=== PATIENT | male | born 1950 | race Caucasian/White ===

== ENCOUNTER 2022-11-23 03:26 | Emergency (ER) | payer MEDICARE ==
[~2022-11-23] VITALS: Ht 177.8 cm; Wt 117.9 kg
[~2022-11-23 03:26] MED LIST: AMLODIPINE BESYL5 MG PO; ASPIRIN ADULT L81 M2 PO; ATORVASTATIN CA20 M1 PO; DOXAZOSIN MESYLA4 MG PO; FAMOTIDINE40 MG PO; FUROSEMIDE40 MG PO; LACTULOSE20 GM/30 M PO; Lopressor25 MG PO; METFORMIN HYDR500 MG PO; VIBRA-TAB100 MG PO
[2022-11-23 04:52] LABS: BASO % 0.3 % (0.0-1.0); EOS % 0.1 % (1.0-4.0); HEMATOCRIT 42.8 % (42.0-52.0); LYMPH # 0.8 10*3/uL (1.3-4.4); LYMPH % 8.9 % (27.0-41.0); MEAN CELL VOLUME 82.9 fl (80.0-94.0); MEAN CORPUSCULAR HGB 28.1 pg (27.0-31.0); MEAN CORPUSCULAR HGB CONC 33.9 g/dl (33.0-37.0); MEAN PLATELET VOLUME 9.7 fl (9.6-12.3); MONO # 0.6 10*3/uL (0.1-1.0); MONO % 6.7 % (3.0-9.0); NEUT # 7.8 10*3/uL (2.3-7.9); NEUT % 83.8 % (47.0-73.0); PLATELET COUNT AUTOMATED 201 10*3/uL (130-400); RED BLOOD COUNT 5.16 10*6/uL (4.50-5.90); RED CELL DISTRI WIDTH 12.9 % (0-14.5); WHITE BLOOD COUNT 9.3 10*3/uL (4.8-10.8)
[2022-11-23 05:19] LABS: ALKALINE PHOSPHATASE 59 U/L (46-116); BUN 17 mg/dl (9-23); CHLORIDE 101 mmol/L (98-107); POTASSIUM 3.9 mmol/L (3.4-5.1); SGPT/ALT 10 U/L (10-49); TOTAL PROTEIN 7.1 gm/dL (6.0-8.0)
[2022-11-23 05:34] LABS: BILIRUBIN Negative (Negative); BLOOD Negative (Negative); CLARITY Clear (Clear); COLOR Dark Yellow (Yellow); GLUCOSE Negative (Negative); KETONE Trace (Negative); LEUKO ESTERASE Negative (Negative); NITRITE Negative (Negative)
[2022-11-23 05:47] LABS: BACTERIA 2+; MUCOUS 2+
[2022-11-23] MEDS ORDERED: ELIQUIS5 M2 PO (08:47)
== END 2022-11-23 10:28 | disposition home or self-care (01) ==
LOC: ED 03:26
PROVIDERS: Emergency Medicine
DX: I82.431 Acute embolism and thrombosis of right popliteal vein (principal); I10 Essential (primary) hypertension; E11.9 Type 2 diabetes mellitus without complications; E78.5 Hyperlipidemia, unspecified; Z98.890 Other specified postprocedural states

== ENCOUNTER 2024-03-22 21:50 | Inpatient (IN) | payer MEDICARE, MEDICAID ==
[~2024-03-22] VITALS: Ht 182.8 cm; Wt 111.1 kg
[~2024-03-22 21:50] MED LIST changes: +ELIQUIS5 M2 PO
[2024-03-22 21:56] VITALS: BP 120/74
[2024-03-22 22:21] LABS: BILIRUBIN Negative (Negative); BLOOD Negative (Negative); CLARITY Clear (Clear); COLOR Yellow (Yellow); GLUCOSE Negative (Negative); KETONE Negative (Negative); LEUKO ESTERASE 1+ (Negative); NITRITE Negative (Negative); SPECIFIC GRAVITY 1.015 (1.001-1.030); UROBILINOGEN 0.2 E.U./dl (0.0-1.0)
[2024-03-22 22:29] LABS: BACTERIA TRACE; RBC 0-2 rbc/hpf (0-2); WBC 16-20 wbc/hpf (0-5)
[2024-03-22 23:07] LABS: BASO % 0.3 % (0.0-1.0); EOS % 0.1 % (1.0-4.0); HEMATOCRIT 36.1 % (42.0-52.0); LYMPH # 0.8 10*3/uL (1.3-4.4); LYMPH % 5.3 % (27.0-41.0); MEAN CELL VOLUME 81.1 fl (80.0-94.0); MEAN CORPUSCULAR HGB CONC 33.2 g/dl (33.0-37.0); MEAN PLATELET VOLUME 9.7 fl (9.6-12.3); MONO # 1.2 10*3/uL (0.1-1.0); NEUT # 12.8 10*3/uL (2.3-7.9); NEUT % 85.8 % (47.0-73.0); PLATELET COUNT AUTOMATED 185 10*3/uL (130-400); RED BLOOD COUNT 4.45 10*6/uL (4.50-5.90)
[2024-03-22] MEDS ORDERED: XIFAXAN550 MG PO (23:26)
[2024-03-22] MEDS ORDERED: POTASSIUM CHLO10 ME4 PO (23:27)
[2024-03-22 23:28] LABS: POTASSIUM 3.2 mmol/L (3.4-5.1); TOTAL PROTEIN 7.2 gm/dL (6.0-8.0)
[2024-03-22] MEDS ORDERED: FLOMAX0.4 MG PO (23:28)
[2024-03-23] MEDS ORDERED: fentaNYL CITRATE 100 MCG/2 ML VIAL IV ONE (00:20)
[2024-03-23] MEDS ORDERED: LACTULOSE 20 GM/30 ML UDC PO ONE (01:10)
[2024-03-23 04:26] VITALS: BP 146/80
[2024-03-23] MEDS ORDERED: Ceftriaxone Sodium 1 GM/10 ML SYR IV ONE (04:55)
[2024-03-23] MEDS ORDERED: TEMAZEPAM 15 MG CAP PO PRN (05:40)
[2024-03-23] MEDS ORDERED: ACETAMINOPHEN 325 MG TAB PO PRN (05:40)
[2024-03-23] MEDS ORDERED: BISACODYL 5 MG TAB PO PRN (05:40)
[2024-03-23] MEDS ORDERED: BISACODYL 10 MG SUPP R PRN (05:40)
[2024-03-23] MEDS ORDERED: Magnesium Hydroxide 30 ML UDC PO PRN (05:40)
[2024-03-23] MEDS ORDERED: ACETAMINOPHEN 650 MG SUPP R PRN (05:40)
[2024-03-23] MEDS ORDERED: DEXTROSE 10 % IN WATER 250 ML IV PRN (05:45)
[2024-03-23] MEDS ORDERED: SODIUM CHLORIDE 0.9% 1,000 ML IV ONE (05:45)
[2024-03-23 07:26] LABS: BASO % 0.3 % (0.0-1.0); EOS % 0.1 % (1.0-4.0); HEMATOCRIT 35.5 % (42.0-52.0); LYMPH # 1.2 10*3/uL (1.3-4.4); LYMPH % 8.5 % (27.0-41.0); MEAN CELL VOLUME 83.1 fl (80.0-94.0); MEAN CORPUSCULAR HGB 26.5 pg (27.0-31.0); MEAN CORPUSCULAR HGB CONC 31.8 g/dl (33.0-37.0); MEAN PLATELET VOLUME 9.8 fl (9.6-12.3); MONO # 1.3 10*3/uL (0.1-1.0); MONO % 8.9 % (3.0-9.0); NEUT # 11.6 10*3/uL (2.3-7.9); PLATELET COUNT AUTOMATED 168 10*3/uL (130-400); RED BLOOD COUNT 4.27 10*6/uL (4.50-5.90); WHITE BLOOD COUNT 14.1 10*3/uL (4.8-10.8)
[2024-03-23] MEDS ORDERED: INSULIN LISPRO 1 UNIT/0.01 ML SQ SCH (07:30)
[2024-03-23 07:39] LABS: ACT PARTIAL THROMBO TIME 29.2 SECONDS (20.0-32.1)
[2024-03-23 07:50] LABS: FREE T4 0.93 ng/dl (0.89-1.76); POTASSIUM 3.1 mmol/L (3.4-5.1); TOTAL PROTEIN 6.8 gm/dL (6.0-8.0)
[2024-03-23 08:00] VITALS: BP 131/60
[2024-03-23] MEDS ORDERED: POTASSIUM CHLORIDE 20 MEQ TAB PO ONE (08:10)
[2024-03-23 09:07] LABS: VITAMIN D, 25-HYDROXY 21.9 ng/mL (30-100)
[2024-03-23] MEDS ORDERED: Acetaminophen/Hydrocodone 5 MG/325 MG TABLET PO PRN (13:00)
[2024-03-23 16:00] VITALS: BP 129/63
[2024-03-23 20:53] VITALS: BP 135/62
[2024-03-24] VITALS: BP 137/64
[2024-03-24 05:38] LABS: BUN 19 mg/dl (9-23); CHLORIDE 103 mmol/L (98-107); POTASSIUM 3.6 mmol/L (3.4-5.1)
[2024-03-24 06:07] LABS: BASO % 0.4 % (0.0-1.0); EOS # 0.2 10*3/uL (0.0-0.4); EOS % 1.5 % (1.0-4.0); HEMATOCRIT 33.9 % (42.0-52.0); LYMPH # 1.3 10*3/uL (1.3-4.4); LYMPH % 11.4 % (27.0-41.0); MEAN CELL VOLUME 83.3 fl (80.0-94.0); MEAN CORPUSCULAR HGB 26.3 pg (27.0-31.0); MEAN CORPUSCULAR HGB CONC 31.6 g/dl (33.0-37.0); MEAN PLATELET VOLUME 10.6 fl (9.6-12.3); MONO % 9.3 % (3.0-9.0); NEUT # 8.6 10*3/uL (2.3-7.9); PLATELET COUNT AUTOMATED 167 10*3/uL (130-400); RED BLOOD COUNT 4.07 10*6/uL (4.50-5.90); RED CELL DISTRI WIDTH 15.1 % (0-14.5); WHITE BLOOD COUNT 11.1 10*3/uL (4.8-10.8)
[2024-03-24 08:00] VITALS: BP 135/67
[2024-03-24] MEDS ORDERED: Vitamin D 400 IU TAB (10 MCG) PO SCH (10:00)
[2024-03-24] MEDS ORDERED: Ceftriaxone Sodium 1 GM in SYRINGE INFUSION 10 ML IV SCH (10:00)
[2024-03-24] MEDS ORDERED: Rivastigmine Tartrate 4.6 MG/24 HR PATCH T SCH (10:55)
[2024-03-24 12:00] VITALS: BP 112/67
[2024-03-24 15:53] VITALS: BP 133/70
[2024-03-24 20:00] VITALS: BP 135/62
[2024-03-24] MEDS ORDERED: RIFAXIMIN 550 MG TAB PO SCH (22:00)
[2024-03-24] MEDS ORDERED: LACTULOSE 20 GM/30 ML UDC PO SCH (22:00)
[2024-03-24] MEDS ORDERED: Metoprolol Tartrate 25 MG TAB PO SCH (22:00)
[2024-03-24] MEDS ORDERED: Memantine Hydrochloride 5 MG TAB PO SCH (22:00)
[2024-03-25] VITALS: BP 134/64
[2024-03-25 04:03] LABS: BASO % 0.4 % (0.0-1.0); EOS # 0.3 10*3/uL (0.0-0.4); EOS % 3.2 % (1.0-4.0); HEMATOCRIT 34.9 % (42.0-52.0); LYMPH # 1.6 10*3/uL (1.3-4.4); LYMPH % 16.7 % (27.0-41.0); MEAN CELL VOLUME 85.3 fl (80.0-94.0); MEAN CORPUSCULAR HGB 25.7 pg (27.0-31.0); MEAN CORPUSCULAR HGB CONC 30.1 g/dl (33.0-37.0); MEAN PLATELET VOLUME 9.7 fl (9.6-12.3); MONO # 0.8 10*3/uL (0.1-1.0); MONO % 8.7 % (3.0-9.0); NEUT # 6.8 10*3/uL (2.3-7.9); NEUT % 70.5 % (47.0-73.0); PLATELET COUNT AUTOMATED 180 10*3/uL (130-400); RED BLOOD COUNT 4.09 10*6/uL (4.50-5.90); WHITE BLOOD COUNT 9.7 10*3/uL (4.8-10.8)
[2024-03-25 04:27] LABS: BUN 14 mg/dl (9-23); CHLORIDE 104 mmol/L (98-107); POTASSIUM 4.1 mmol/L (3.4-5.1)
[2024-03-25 08:00] VITALS: BP 131/60
[2024-03-25 11:58] VITALS: BP 144/58
[2024-03-25 15:58] VITALS: BP 129/74
[2024-03-25 20:00] VITALS: BP 133/64
[2024-03-26] VITALS: BP 128/62
[2024-03-26 05:40] LABS: BUN 13 mg/dl (9-23); CHLORIDE 106 mmol/L (98-107); POTASSIUM 4.5 mmol/L (3.4-5.1)
[2024-03-26 07:43] LABS: BASO # 0.1 10*3/uL (0.0-0.1); BASO % 0.8 % (0.0-1.0); EOS # 0.6 10*3/uL (0.0-0.4); EOS % 7.1 % (1.0-4.0); HEMATOCRIT 36.5 % (42.0-52.0); LYMPH # 1.6 10*3/uL (1.3-4.4); LYMPH % 18.7 % (27.0-41.0); MEAN CELL VOLUME 84.1 fl (80.0-94.0); MEAN PLATELET VOLUME 9.4 fl (9.6-12.3); MONO # 0.7 10*3/uL (0.1-1.0); MONO % 8.2 % (3.0-9.0); NEUT # 5.7 10*3/uL (2.3-7.9); NEUT % 64.9 % (47.0-73.0); PLATELET COUNT AUTOMATED 200 10*3/uL (130-400); RED BLOOD COUNT 4.34 10*6/uL (4.50-5.90); WHITE BLOOD COUNT 8.8 10*3/uL (4.8-10.8)
[2024-03-26 07:55] VITALS: BP 132/69
[2024-03-26 12:00] VITALS: BP 128/67
[2024-03-26 16:00] VITALS: BP 135/63
[2024-03-26] MEDS ORDERED: ATORVASTATIN CALCIUM 20 MG TAB PO SCH (18:00)
[2024-03-26 20:00] VITALS: BP 138/65
[2024-03-26] MEDS ORDERED: APIXABAN 5 MG TAB PO SCH (22:00)
[2024-03-27] VITALS: BP 132/62
[2024-03-27 05:13] LABS: BUN 16 mg/dl (9-23); CHLORIDE 104 mmol/L (98-107); POTASSIUM 4.3 mmol/L (3.4-5.1)
[2024-03-27 06:22] LABS: BASO # 0.1 10*3/uL (0.0-0.1); BASO % 0.7 % (0.0-1.0); EOS # 0.6 10*3/uL (0.0-0.4); EOS % 7.8 % (1.0-4.0); HEMATOCRIT 36.4 % (42.0-52.0); LYMPH # 1.9 10*3/uL (1.3-4.4); LYMPH % 22.9 % (27.0-41.0); MEAN CELL VOLUME 83.5 fl (80.0-94.0); MEAN CORPUSCULAR HGB 26.8 pg (27.0-31.0); MEAN CORPUSCULAR HGB CONC 32.1 g/dl (33.0-37.0); MEAN PLATELET VOLUME 10.1 fl (9.6-12.3); MONO # 0.6 10*3/uL (0.1-1.0); MONO % 7.8 % (3.0-9.0); NEUT # 4.9 10*3/uL (2.3-7.9); NEUT % 60.6 % (47.0-73.0); PLATELET COUNT AUTOMATED 236 10*3/uL (130-400); RED BLOOD COUNT 4.36 10*6/uL (4.50-5.90); RED CELL DISTRI WIDTH 14.9 % (0-14.5); WHITE BLOOD COUNT 8.1 10*3/uL (4.8-10.8)
[2024-03-27 08:00] VITALS: BP 139/96
[2024-03-27] MEDS ORDERED: ASPIRIN ENTERIC COATED 81 MG TAB PO SCH (10:00)
[2024-03-27] MEDS ORDERED: amLODIPine besylate 5 MG TAB PO SCH (10:00)
[2024-03-27 12:00] VITALS: BP 125/67
[2024-03-27] MEDS ORDERED: VITAMIN D310 MC1 PO (13:27)
[2024-03-27] MEDS ORDERED: EXELON1 EACH T (15:02)
[2024-03-27] MEDS ORDERED: VITAMIN B12500 MC2 PO (15:03)
[2024-03-27] MEDS ORDERED: NAMENDA-5 PO (15:17)
== END 2024-03-27 15:52 | disposition home health service (06) | DRG 682 ==
LOC: ED 21:50 → 4E 03-23 04:53 → EDHOLD 03-23 04:53 → 4E 03-23 20:20
PROVIDERS: Emergency Medicine; Student in an Organized Health Care Education/Training Program; ADMIT Student in an Organized Health Care Education/Training Program; ATTEND Student in an Organized Health Care Education/Training Program
PROC: 0HBRXZZ Excision of Toe Nail, External Approach (ICD-10-PCS; principal; 2024-03-26)
PROC: 0HBRXZZ Excision of Toe Nail, External Approach (ICD-10-PCS; 2024-03-26)
PROC: 0HBRXZZ Excision of Toe Nail, External Approach (ICD-10-PCS; 2024-03-26)
PROC: 0HBRXZZ Excision of Toe Nail, External Approach (ICD-10-PCS; 2024-03-26)
PROC: 0HBRXZZ Excision of Toe Nail, External Approach (ICD-10-PCS; 2024-03-26)
PROC: 0HBRXZZ Excision of Toe Nail, External Approach (ICD-10-PCS; 2024-03-26)
PROC: 0HBRXZZ Excision of Toe Nail, External Approach (ICD-10-PCS; 2024-03-26)
PROC: 0HBRXZZ Excision of Toe Nail, External Approach (ICD-10-PCS; 2024-03-26)
PROC: 0HBRXZZ Excision of Toe Nail, External Approach (ICD-10-PCS; 2024-03-26)
PROC: 0HBRXZZ Excision of Toe Nail, External Approach (ICD-10-PCS; 2024-03-26)
DX: N17.0 Acute kidney failure with tubular necrosis (principal); G93.41 Metabolic encephalopathy; N30.00 Acute cystitis without hematuria; E87.1 Hypo-osmolality and hyponatremia; E87.6 Hypokalemia; Z66 Do not resuscitate; F03.90 Unspecified dementia, unspecified severity, without behavioral disturbance, psychotic disturbance, mood disturbance, and anxiety; E11.65 Type 2 diabetes mellitus with hyperglycemia; D72.829 Elevated white blood cell count, unspecified; R29.6 Repeated falls; D64.9 Anemia, unspecified; E80.6 Other disorders of bilirubin metabolism; E55.9 Vitamin D deficiency, unspecified; M17.0 Bilateral primary osteoarthritis of knee; E78.5 Hyperlipidemia, unspecified; K74.60 Unspecified cirrhosis of liver; B35.1 Tinea unguium; I87.8 Other specified disorders of veins; I10 Essential (primary) hypertension; Z79.899 Other long term (current) drug therapy; Z79.01 Long term (current) use of anticoagulants; Z79.2 Long term (current) use of antibiotics; Z86.718 Personal history of other venous thrombosis and embolism

== ENCOUNTER 2024-12-01 14:31 | Inpatient (IN) | payer MEDICARE ==
[~2024-12-01] VITALS: Ht 170.2 cm; Wt 90.5 kg
[~2024-12-01 14:31] MED LIST changes: +CEPHULAC10 GM/151 PO; +EXELON1 EACH T; +FLOMAX0.4 MG PO; +FUROSEMIDE20 M1 PO; +MEMANTINE HCL5 MG PO; +NAMENDA-5 PO; +NEURONTIN300 MG PO; +POTASSIUM CHLO10 ME4 PO; +POTASSIUM CHLO20 ME4 PO; +RIVASTIGMINE T4.5 M1 PO; +VITAMIN B12500 MC2 PO; +VITAMIN D310 MC1 PO; +XIFAXAN550 MG PO
[2024-12-01 14:53] VITALS: BP 117/65
[2024-12-01 14:53] LABS: BASO # 0.1 10*3/uL (0.0-0.1); EOS # 0.2 10*3/uL (0.0-0.4); EOS % 2.3 % (1.0-4.0); HEMATOCRIT 45.5 % (42.0-52.0); MEAN CELL VOLUME 83.6 fl (80.0-94.0); MEAN CORPUSCULAR HGB CONC 32.3 g/dl (33.0-37.0); MONO # 0.8 10*3/uL (0.1-1.0); MONO % 11.9 % (3.0-9.0); NEUT # 4.2 10*3/uL (2.3-7.9); NEUT % 61.7 % (47.0-73.0); PLATELET COUNT AUTOMATED 203 10*3/uL (130-400); RED BLOOD COUNT 5.44 10*6/uL (4.50-5.90); RED CELL DISTRI WIDTH 15.2 % (0-14.5); WHITE BLOOD COUNT 6.9 10*3/uL (4.8-10.8)
[2024-12-01] MEDS ORDERED: METOPROLOL25 MG PO (15:06)
[2024-12-01] MEDS ORDERED: DOXAZOSIN4 MG PO (15:06)
[2024-12-01] MEDS ORDERED: METFORMIN HCL500 M3 PO (15:06)
[2024-12-01] MEDS ORDERED: VITAMIN B121000 MC3 PO (15:06)
[2024-12-01 15:13] LABS: BUN 8 mg/dl (9-23); CHLORIDE 93 mmol/L (98-107); POTASSIUM 3.8 mmol/L (3.4-5.1)
[2024-12-01 16:34] VITALS: BP 114/76
[2024-12-01] MEDS ORDERED: TEMAZEPAM 15 MG CAP PO PRN (16:40)
[2024-12-01] MEDS ORDERED: ACETAMINOPHEN 650 MG SUPP R PRN (16:40)
[2024-12-01] MEDS ORDERED: Ondansetron Hydrochloride 4 MG/2 ML VIAL IV PRN (16:40)
[2024-12-01] MEDS ORDERED: BISACODYL 10 MG SUPP R PRN (16:40)
[2024-12-01] MEDS ORDERED: MORPHINE Sulfate 2 MG/ML SYR IV PRN (16:40)
[2024-12-01] MEDS ORDERED: Acetaminophen/Hydrocodone 5 MG/325 MG TABLET PO PRN (16:40)
[2024-12-01] MEDS ORDERED: ACETAMINOPHEN 325 MG TAB PO PRN (16:40)
[2024-12-01] MEDS ORDERED: DEXTROSE 10 % IN WATER 250 ML IV PRN (16:40)
[2024-12-01] MEDS ORDERED: BISACODYL 5 MG TAB PO PRN (16:40)
[2024-12-01] MEDS ORDERED: Magnesium Hydroxide 30 ML UDC PO PRN (16:40)
[2024-12-01 20:00] VITALS: BP 116/75; BP 142/83
[2024-12-01] MEDS ORDERED: INSULIN LISPRO 1 UNIT/0.01 ML SQ SCH (22:00)
[2024-12-02] VITALS: BP 134/93; BP 142/83
[2024-12-02 04:00] VITALS: BP 130/87
[2024-12-02 08:00] VITALS: BP 117/69
[2024-12-02] MEDS ORDERED: Enoxaparin Sodium 40 MG/0.4 ML SYR SC SCH (10:00)
[2024-12-02 12:00] VITALS: BP 114/75
[2024-12-02 16:00] VITALS: BP 110/71
[2024-12-02] MEDS ORDERED: POTASSIUM CHLORIDE 20 MEQ TAB PO SCH (18:00)
[2024-12-02 20:00] VITALS: BP 164/77
[2024-12-02] MEDS ORDERED: Rivastigmine Tartrate 1.5 MG CAP PO SCH (22:00)
[2024-12-02] MEDS ORDERED: AMMONIUM LACTATE 12% LOTION T SCH (22:00)
[2024-12-02] MEDS ORDERED: GABAPENTIN 300 MG CAP PO SCH (22:00)
[2024-12-02] MEDS ORDERED: FAMOTIDINE 20 MG TAB PO SCH (22:00)
[2024-12-02] MEDS ORDERED: ATORVASTATIN CALCIUM 20 MG TAB PO SCH (22:00)
[2024-12-03] VITALS: BP 81/59
[2024-12-03 04:00] VITALS: BP 89/59
[2024-12-03 08:00] VITALS: BP 129/73
[2024-12-03] MEDS ORDERED: Memantine Hydrochloride 5 MG TAB PO SCH (10:00)
[2024-12-03] MEDS ORDERED: Vitamin D 400 IU TAB (10 MCG) PO SCH (10:00)
[2024-12-03] MEDS ORDERED: amLODIPine besylate 5 MG TAB PO SCH (10:00)
[2024-12-03] MEDS ORDERED: Tamsulosin Hydrochloride 0.4 MG CAP PO SCH (10:00)
[2024-12-03] MEDS ORDERED: ASPIRIN ENTERIC COATED 81 MG TAB PO SCH (10:00)
[2024-12-03] MEDS ORDERED: FUROSEMIDE 20 MG TAB PO SCH (10:00)
[2024-12-03] MEDS ORDERED: LACTULOSE 20 GM/30 ML UDC PO SCH (10:00)
[2024-12-03 12:00] VITALS: BP 113/76; BP 92/49
[2024-12-03 16:00] VITALS: BP 102/67
[2024-12-03 20:00] VITALS: BP 107/68
[2024-12-04] VITALS: BP 126/69
[2024-12-04 06:21] LABS: BASO # 0.1 10*3/uL (0.0-0.1); BASO % 1.2 % (0.0-1.0); EOS # 0.2 10*3/uL (0.0-0.4); EOS % 3.1 % (1.0-4.0); HEMATOCRIT 38.8 % (42.0-52.0); MEAN CELL VOLUME 82.9 fl (80.0-94.0); MEAN CORPUSCULAR HGB 26.7 pg (27.0-31.0); MEAN CORPUSCULAR HGB CONC 32.2 g/dl (33.0-37.0); MEAN PLATELET VOLUME 9.5 fl (9.6-12.3); MONO # 0.8 10*3/uL (0.1-1.0); MONO % 13.3 % (3.0-9.0); NEUT # 3.2 10*3/uL (2.3-7.9); NEUT % 54.2 % (47.0-73.0); PLATELET COUNT AUTOMATED 187 10*3/uL (130-400); RED BLOOD COUNT 4.68 10*6/uL (4.50-5.90); RED CELL DISTRI WIDTH 15.1 % (0-14.5); WHITE BLOOD COUNT 5.9 10*3/uL (4.8-10.8)
[2024-12-04 06:31] LABS: BUN 12 mg/dl (9-23); CHLORIDE 97 mmol/L (98-107); POTASSIUM 3.9 mmol/L (3.4-5.1)
[2024-12-04] MEDS ORDERED: HEEL PROTECTOR DEVICE ONE (07:47)
[2024-12-04] MEDS ORDERED: FOAM BANDAGE HEEL T ONE (07:47)
[2024-12-04 08:00] VITALS: BP 121/78
[2024-12-04] MEDS ORDERED: FOAM BANDAGE 1 EACH BANDAGE T ONE (15:21)
[2024-12-04 16:00] VITALS: BP 135/77
[2024-12-04 20:00] VITALS: BP 111/63
[2024-12-05] VITALS: BP 110/69
[2024-12-05 06:34] LABS: BASO # 0.1 10*3/uL (0.0-0.1); BASO % 1.1 % (0.0-1.0); EOS # 0.2 10*3/uL (0.0-0.4); EOS % 3.7 % (1.0-4.0); HEMATOCRIT 39.1 % (42.0-52.0); MEAN CELL VOLUME 83.9 fl (80.0-94.0); MEAN CORPUSCULAR HGB 26.8 pg (27.0-31.0); MEAN PLATELET VOLUME 9.3 fl (9.6-12.3); MONO # 0.8 10*3/uL (0.1-1.0); MONO % 13.9 % (3.0-9.0); NEUT # 2.8 10*3/uL (2.3-7.9); NEUT % 51.6 % (47.0-73.0); PLATELET COUNT AUTOMATED 178 10*3/uL (130-400); RED BLOOD COUNT 4.66 10*6/uL (4.50-5.90); RED CELL DISTRI WIDTH 15.5 % (0-14.5); WHITE BLOOD COUNT 5.4 10*3/uL (4.8-10.8)
[2024-12-05 07:11] LABS: BUN 12 mg/dl (9-23); CHLORIDE 98 mmol/L (98-107); POTASSIUM 3.8 mmol/L (3.4-5.1)
[2024-12-05 08:00] VITALS: BP 123/69
[2024-12-05] MEDS ORDERED: POTASSIUM CHLO20 ME4 PO (10:41)
[2024-12-05] MEDS ORDERED: AMMONIUM LACTA227 GM T (10:41)
[2024-12-05] MEDS ORDERED: ADMELOG100 UNIT/1 SQ (10:41)
[2024-12-05 12:00] VITALS: BP 114/71
== END 2024-12-05 14:55 | DRG 884 ==
LOC: ED 14:31 → EDHOLD 14:37 → ED 14:37 → EDHOLD 15:29 → 5E 15:29
PROVIDERS: Emergency Medicine; Internal Medicine; Student in an Organized Health Care Education/Training Program; ADMIT Internal Medicine; ATTEND Internal Medicine
DX: R54 Age-related physical debility (principal); E87.1 Hypo-osmolality and hyponatremia; R62.7 Adult failure to thrive; K74.60 Unspecified cirrhosis of liver; E87.8 Other disorders of electrolyte and fluid balance, not elsewhere classified; T30.0 Burn of unspecified body region, unspecified degree; E11.65 Type 2 diabetes mellitus with hyperglycemia; E55.9 Vitamin D deficiency, unspecified; Z66 Do not resuscitate; F03.90 Unspecified dementia, unspecified severity, without behavioral disturbance, psychotic disturbance, mood disturbance, and anxiety; E78.5 Hyperlipidemia, unspecified; T79.9XXA Unspecified early complication of trauma, initial encounter; X08.8XXA Exposure to other specified smoke, fire and flames, initial encounter; Y93.89 Activity, other specified; Y92.89 Other specified places as the place of occurrence of the external cause; Y99.8 Other external cause status; Z74.01 Bed confinement status; Z83.3 Family history of diabetes mellitus; Z79.82 Long term (current) use of aspirin; Z79.899 Other long term (current) drug therapy; Z51.5 Encounter for palliative care

== ENCOUNTER 2025-08-15 13:50 | Inpatient (IN) | payer MEDICARE, MEDICAID ==
[~2025-08-15] VITALS: Ht 172.7 cm; Wt 91.8 kg
[~2025-08-15 13:50] MED LIST changes: +ADMELOG100 UNIT/1 SQ; +AMMONIUM LACTA227 GM T; +DOXAZOSIN4 MG PO; +METFORMIN HCL500 M3 PO; +METOPROLOL25 MG PO; +VITAMIN B121000 MC3 PO
[2025-08-15 14:01] VITALS: BP 113/56
[2025-08-15 14:55] LABS: MEAN CELL VOLUME 81.8 fl (80.0-94.0); MEAN CORPUSCULAR HGB 27.1 pg (27.0-31.0); MEAN PLATELET VOLUME 10.3 fl (9.6-12.3); NUCLEATED RED BLOOD CELL 0.0 % (0.0-0.0); NUCLEATED RED BLOOD CELL 0.0 10*3/uL (0.0-0.0); PLATELET COUNT AUTOMATED 156 10*3/uL (130-400); RED CELL DISTRI WIDTH 14.7 % (0-14.5)
[2025-08-15 14:56] LABS: MANUAL DIFF REFLEX YES
[2025-08-15 15:06] LABS: ACT PARTIAL THROMBO TIME 29.3 SECONDS (20.0-32.1)
[2025-08-15 15:14] LABS: PLATELET SUFFICIENCY NORMAL (NORMAL)
[2025-08-15] MEDS ORDERED: SODIUM CHLORIDE 0.9% 1,000 ML IV ONE ×2 (15:15→22:10)
[2025-08-15 15:21] LABS: BUN 40.0 mg/dl (9-23); SGPT/ALT 13.0 U/L (5-49)
[2025-08-15 16:21] LABS: BILIRUBIN 1+ (Negative); BLOOD 1+ (Negative); CLARITY Cloudy (Clear); COLOR Orange (Yellow); KETONE Trace (Negative); LEUKO ESTERASE 2+ (Negative); NITRITE Negative (Negative); PH 5.0 (4.5-8.0); SPECIFIC GRAVITY 1.025 (1.001-1.030); UROBILINOGEN 1.0 E.U./dl (0.0-1.0)
[2025-08-15 16:37] LABS: BACTERIA 4+; HYALINE CAST 0-2; RBC 16-20 rbc/hpf (0-2); WBC TNTC wbc/hpf (0-5)
[2025-08-15 17:58] VITALS: BP 124/69
[2025-08-15 22:28] VITALS: BP 122/84
[2025-08-15] MEDS ORDERED: Ondansetron Hydrochloride 4 MG/2 ML VIAL IV PRN (23:20)
[2025-08-15] MEDS ORDERED: BISACODYL 5 MG TAB PO PRN (23:20)
[2025-08-15] MEDS ORDERED: Acetaminophen/Hydrocodone 5 MG/325 MG TABLET PO PRN (23:20)
[2025-08-15] MEDS ORDERED: ACETAMINOPHEN 325 MG TAB PO PRN (23:20)
[2025-08-15 23:46] VITALS: BP 128/84
[2025-08-15] MEDS ORDERED: MEMANTINE HCL5 MG PO (23:53)
[2025-08-15] MEDS ORDERED: VITAMIN D325 MC1 PO (23:55)
[2025-08-15] MEDS ORDERED: BISACODYL10 MG R (23:57)
[2025-08-15] MEDS ORDERED: MILK OF MA400 MG/52 PO (23:58)
[2025-08-16 01:00] VITALS: BP 135/64
[2025-08-16] MEDS ORDERED: SODIUM CHLORIDE 0.9% 1,000 ML IV ONE (03:15)
[2025-08-16] MEDS ORDERED: DEXTROSE 50% 25 GM/50 ML VIAL IV PRN (03:25)
[2025-08-16 06:15] LABS: MEAN CELL VOLUME 82.0 fl (80.0-94.0); MEAN CORPUSCULAR HGB 26.7 pg (27.0-31.0); MEAN PLATELET VOLUME 10.4 fl (9.6-12.3); NUCLEATED RED BLOOD CELL 0.0 % (0.0-0.0); NUCLEATED RED BLOOD CELL 0.0 10*3/uL (0.0-0.0); PLATELET COUNT AUTOMATED 117 10*3/uL (130-400); RED CELL DISTRI WIDTH 14.8 % (0-14.5)
[2025-08-16 06:29] LABS: BUN 39.0 mg/dl (9-23)
[2025-08-16 07:23] LABS: MANUAL DIFF REFLEX YES
[2025-08-16 07:25] LABS: PLATELET SUFFICIENCY LOW (NORMAL)
[2025-08-16] MEDS ORDERED: INSULIN LISPRO 1 UNIT/0.01 ML SQ SCH (07:30)
[2025-08-16 08:00] VITALS: BP 103/65
[2025-08-16] MEDS ORDERED: Memantine Hydrochloride 5 MG TAB PO SCH (10:00)
[2025-08-16] MEDS ORDERED: GABAPENTIN 300 MG CAP PO SCH (10:00)
[2025-08-16] MEDS ORDERED: LACTULOSE 20 GM/30 ML UDC PO SCH (10:00)
[2025-08-16] MEDS ORDERED: Cholecalciferol 2,000 UNIT TABLET (50 MCG) PO SCH (10:00)
[2025-08-16] MEDS ORDERED: ASPIRIN ENTERIC COATED 81 MG TAB PO SCH (10:00)
[2025-08-16] MEDS ORDERED: HEPARIN SODIUM 5,000 UNIT/ML VIAL SC SCH (10:00)
[2025-08-16 12:00] VITALS: BP 110/66
[2025-08-16] MEDS ORDERED: Menthol/Zinc Oxide 4 GM THIN T PRN (12:40)
[2025-08-16 16:00] VITALS: BP 108/66
[2025-08-16 20:00] VITALS: BP 106/63
[2025-08-16] MEDS ORDERED: ATORVASTATIN CALCIUM 20 MG TAB PO SCH (22:00)
[2025-08-16] MEDS ORDERED: Menthol/Zinc Oxide 4 GM THIN T SCH (22:00)
[2025-08-16] MEDS ORDERED: FAMOTIDINE 20 MG TAB PO SCH (22:00)
[2025-08-17] VITALS: BP 121/61
[2025-08-17 06:30] LABS: BASO # 0.1 10*3/uL (0.0-0.1); BASO % 0.4 % (0.0-1.0); EOS # 0.4 10*3/uL (0.0-0.4); EOS % 2.3 % (1.0-4.0); MEAN CELL VOLUME 81.2 fl (80.0-94.0); MEAN CORPUSCULAR HGB 26.2 pg (27.0-31.0); MEAN PLATELET VOLUME 10.7 fl (9.6-12.3); MONO # 0.9 10*3/uL (0.1-1.0); MONO % 5.6 % (3.0-9.0); NEUT # 12.9 10*3/uL (2.3-7.9); NEUT % 81.5 % (47.0-73.0); NUCLEATED RED BLOOD CELL 0.0 % (0.0-0.0); NUCLEATED RED BLOOD CELL 0.0 10*3/uL (0.0-0.0); PLATELET COUNT AUTOMATED 134 10*3/uL (130-400); RED CELL DISTRI WIDTH 14.9 % (0-14.5)
[2025-08-17 07:00] LABS: BUN 36 mg/dl (9-23)
[2025-08-17 08:00] VITALS: BP 102/62
[2025-08-17 12:00] VITALS: BP 104/68
[2025-08-17 16:00] VITALS: BP 106/61
[2025-08-17 20:00] VITALS: BP 115/63
[2025-08-18] VITALS: BP 104/63
[2025-08-18] MEDS ORDERED: FOAM BANDAGE 1 EACH BANDAGE T ONE (06:06)
[2025-08-18 08:00] VITALS: BP 120/68
[2025-08-18] MEDS ORDERED: POTASSIUM CHLORIDE 20 MEQ TAB PO ONE (08:10)
[2025-08-18 12:00] VITALS: BP 148/74
[2025-08-18] MEDS ORDERED: CIPRO500 MG PO (12:42)
[2025-08-18] MEDS ORDERED: METRONIDAZOLE500 M1 PO (12:42)
[2025-08-18] MEDS ORDERED: COLACE100 MG PO (14:22)
== END 2025-08-18 18:10 | DRG 871 ==
LOC: ED 13:50 → 5E 22:49 → EDHOLD 22:49 → 5E 08-16 00:16
PROVIDERS: Nurse Practitioner Family; Student in an Organized Health Care Education/Training Program; ADMIT Student in an Organized Health Care Education/Training Program; ATTEND Student in an Organized Health Care Education/Training Program
DX: A41.9 Sepsis, unspecified organism (principal); G93.41 Metabolic encephalopathy; N17.0 Acute kidney failure with tubular necrosis; N39.0 Urinary tract infection, site not specified; E87.20 Acidosis, unspecified; N18.4 Chronic kidney disease, stage 4 (severe); R65.20 Severe sepsis without septic shock; K52.89 Other specified noninfective gastroenteritis and colitis; K74.60 Unspecified cirrhosis of liver; Z66 Do not resuscitate; Z20.822 Contact with and (suspected) exposure to COVID-19; K59.09 Other constipation; E11.65 Type 2 diabetes mellitus with hyperglycemia; E11.22 Type 2 diabetes mellitus with diabetic chronic kidney disease; I12.9 Hypertensive chronic kidney disease with stage 1 through stage 4 chronic kidney disease, or unspecified chronic kidney disease; E78.2 Mixed hyperlipidemia; M17.0 Bilateral primary osteoarthritis of knee; F03.B0 Unspecified dementia, moderate, without behavioral disturbance, psychotic disturbance, mood disturbance, and anxiety; Z79.82 Long term (current) use of aspirin; Z79.4 Long term (current) use of insulin; Z79.899 Other long term (current) drug therapy